=== PATIENT | male | born 1975 | race Asian ===

== ENCOUNTER 2016-07-24 10:28 | Day surgery (SDC) | payer OTHER ==
[2016-07-24 11:18] VITALS: BMI 29.2
[2016-07-24] MEDS ORDERED: PROPOFOL 20 ML ONE (11:37)
[2016-07-24] MEDS ORDERED: LIDOCAINE HCL 2% JELLY 10 ML CARTRIDGE ONE (12:55)
[2016-07-24] MEDS ORDERED: LIDOCAINE HCL 2% 100 MG/5 ML DISP.SYRIN ONE (13:02)
[2016-07-24] MEDS ORDERED: KETOROLAC TROMETHAMINE 30 MG/1 ML VIAL ONE (13:10)
[2016-07-24 13:42] VITALS: TEMP 98.2
[2016-07-24 13:58] VITALS: PULSE 64
[2016-07-24 14:46] VITALS: BP 115/70
== END 2016-07-24 14:46 | disposition home or self-care (01) ==
LOC: JASU-ENDO 10:28
PROVIDERS: ATTEND Internal Medicine Gastroenterology
PROC: 06LY4CC Occlusion of Hemorrhoidal Plexus with Extraluminal Device, Percutaneous Endoscopic Approach (ICD-10-PCS; principal; 2016-07-24 11:00)
DX: K64.8 Other hemorrhoids (principal)